=== PATIENT | male | born 1990 | race Caucasian/White ===

== ENCOUNTER 2016-11-18 22:26 | Emergency (ER) | payer OTHER | END 2016-11-18 23:13 | disposition home or self-care (01) | LOC: FER 22:26 | DX: S61.230A Puncture wound without foreign body of right index finger without damage to nail, initial encounter (principal); W25.XXXA Contact with sharp glass, initial encounter; Y92.69 Other specified industrial and construction area as the place of occurrence of the external cause; Y99.0 Civilian activity done for income or pay | CPT/HCPCS: 99283 ==

== ENCOUNTER 2021-05-28 20:03 | Emergency (ER) | payer OTHER ==
[~2021-05-28 20:03] MED LIST: KEFLEX500 MG PO
== END 2021-05-28 21:19 | disposition home or self-care (01) ==
LOC: FER 20:03
DX: Z20.822 Contact with and (suspected) exposure to COVID-19 (principal)
CPT/HCPCS: 99283; U0002